=== PATIENT | male | born 1960 | race African-American/Black ===

== ENCOUNTER 2018-07-30 14:49 | Emergency (ER) | payer SELFPAY ==
[~2018-07-30] VITALS: Ht 177.8 cm; Wt 77.1 kg
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
[2018-07-30 16:05] VITALS: BP 151/99
[2018-07-30 16:07] VITALS: BP 151/99
== END 2018-07-30 16:20 | disposition home or self-care (01) ==
LOC: EMR 15:05
DX: S13.9XXA Sprain of joints and ligaments of unspecified parts of neck, initial encounter (principal); M54.5 Low back pain; V43.52XA Car driver injured in collision with other type car in traffic accident, initial encounter; Y92.488 Other paved roadways as the place of occurrence of the external cause; Y99.8 Other external cause status; R03.0 Elevated blood-pressure reading, without diagnosis of hypertension
CPT/HCPCS: 99282